=== PATIENT | female | born 1965 | race Caucasian/White ===

== ENCOUNTER 2017-06-20 16:37 | Emergency (ER) | payer OTHER ==
[~2017-06-20] VITALS: Ht 170.2 cm; Wt 121.7 kg
[~2017-06-20 16:37] MED LIST: AMITRIPTYLINE H25 MG PO; AUGMENTIN875 MG PO; BUPROPION XL300 MG PO; CEFDINIR300 MG PO; CLARITIN10 M3 PO; CORTISPORIN EAR10 ML RIGHT EAR; FERATE240 MG PO; FLOVENT 11120 INHALA IH; GABAPENTIN600 MG PO; LANTUS (UNITS)1 UNIT SC; LANTUS 10100 UNITS/ SC; LISINOPRIL20 MG PO; MOTRIN800 MG PO; NITROFURANTOIN50 MG PO; NORCO 5/3251 TABLET PO; NOVOLOG (UNITS1 UNIT SC; NOVOLOG 10100 UNITS/ SC; PRAVASTATIN SOD40 MG PO; PROAIR HFA8.5 GM IH; TRAZODONE HCL50 MG PO; ZESTRIL,PRINIVI20 MG PO
[2017-06-20] MEDS ORDERED: NAPROXEN500 MG PO (21:29)
[2017-06-20 21:51] VITALS: BP 146/91
== END 2017-06-20 21:56 | disposition home or self-care (01) ==
LOC: EME 16:37
DX: M79.661 Pain in right lower leg (principal); E11.40 Type 2 diabetes mellitus with diabetic neuropathy, unspecified; Z79.4 Long term (current) use of insulin; Z89.429 Acquired absence of other toe(s), unspecified side
CPT/HCPCS: 93971; 99281; 99284